=== PATIENT | male | born 1985 | race Caucasian/White ===

== ENCOUNTER 2022-04-26 12:36 | Emergency (ER) | payer BC ==
[2022-04-26] MEDS ORDERED: Lidocaine 1% 10 ML MDV INFILT ONE (12:44)
[2022-04-26] MEDS ORDERED: Diphtheria,Pertussis(Acell),Tetanus Vaccine 0.5 ML Syringe IM ONE (12:44)
[2022-04-26] MEDS ORDERED: Bacitracin Oint 1 GM U/D Packet TOP ONE (12:45)
== END 2022-04-26 13:26 | disposition home or self-care (01) ==
LOC: DL.ED 12:36
DX: S61.211A Laceration without foreign body of left index finger without damage to nail, initial encounter (principal); Z23 Encounter for immunization; Z88.0 Allergy status to penicillin; Z79.899 Other long term (current) drug therapy; W26.0XXA Contact with knife, initial encounter
CPT/HCPCS: 12001; 90471; 90715; 99282